=== PATIENT | female | born 2000 | race Caucasian/White ===

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

== ENCOUNTER 2020-02-22 19:40 | Emergency (ER) | payer OTHER ==
[~2020-02-22] VITALS: Ht 167.6 cm; Wt 101.6 kg
[2020-02-22 20:40] VITALS: BP 129/90
[2020-02-22 23:03] LABS: HEMOGLOBIN 14.3 g/dL (12.0-16.0); MEAN CORPUSCULAR VOLUME 88.3 fL (80-94)
[2020-02-22 23:07] LABS: BASOPHILS # (AUTO) 0.1 K/uL (0.00-0.22); BASOPHILS % (AUTO) 1.2 % (0.0-2.0); EOSINOPHILS # (AUTO) 0.1 K/uL (0-0.4); EOSINOPHILS % (AUTO) 0.8 % (0.0-4.0); LYMPHOCYTES # (AUTO) 3.4 K/uL (2.5-16.5); LYMPHOCYTES % (AUTO) 35.5 % (20.5-51.1); MEAN CORPUSCULAR HEMOGLOBIN 30 pg (27-31); MEAN CORPUSCULAR HGB CONC 34 g/dL (33-37); MONOCYTES # (AUTO) 0.8 K/uL (0.8-1.0); MONOCYTES % (AUTO) 8.5 % (1.7-9.3); NEUTROPHILS # (AUTO) 5.2 K/uL (1.8-7.7); PLATELET COUNT (AUTO) 260 K/uL (140-450); RED BLOOD CELL COUNT(AUTO) 4.75 MIL/uL (4.20-5.40); RED CELL DISTRIBUTION WIDTH 13.2 % (11.6-13.7); WHITE BLOOD COUNT (AUTO) 9.6 K/uL (4.5-11.0)
[2020-02-22 23:17] LABS: ALBUMIN 4.2 g/dL (3.4-5.0); ANION GAP 13.8 (8-16); CARBON DIOXIDE 25.9 mmol/L (21-32); CREATININE 0.7 mg/dL (0.6-1.3); POTASSIUM 3.7 mmol/L (3.5-5.1); TOTAL BILIRUBIN 0.5 mg/dL (0.0-1.0)
[2020-02-22 23:55] VITALS: BP 129/90
== END 2020-02-22 23:55 | disposition home or self-care (01) ==
LOC: MED 19:40
DX: K80.20 Calculus of gallbladder without cholecystitis without obstruction (principal)
CPT/HCPCS: 36415; 76705; 80053; 81025; 83690; 85025; 99284

== ENCOUNTER 2021-02-06 20:59 | Emergency (ER) | payer MEDICAID, OTHER ==
[~2021-02-06] VITALS: Ht 165.1 cm; Wt 108.4 kg
[2021-02-06 21:23] VITALS: BP 152/86
[2021-02-06 23:00] VITALS: BP 152/86
--- NOTE | 2021-02-06 23:00 | NUR ---
Patient discharged with v/s stable. Written and verbal after care instructions given and explained. Patient alert, oriented and verbalized understanding of instructions. [g ED.DCMODE] with [g ED.D/CMODE]. All questions addressed prior to discharge. ID band removed. Patient advised to follow up with PMD. Rx of HYDROCODON/ACETAMINOPHEN AND IBUPROFEN given. Patient educated on indication of medication including possible reaction and side effects. Opportunity to ask questions provided and answered.
--- NOTE | 2021-02-06 23:01 | NUR ---
Dr. Mae examining patient.
[2021-02-06] MEDS ORDERED: ACET-8386 PO (23:08)
[2021-02-06] MEDS ORDERED: IBUP-2213 PO (23:08)
== END 2021-02-06 23:20 | disposition home or self-care (01) ==
LOC: MED 20:59
DX: M25.531 Pain in right wrist (principal); Z79.1 Long term (current) use of non-steroidal anti-inflammatories (NSAID); Z79.891 Long term (current) use of opiate analgesic
CPT/HCPCS: 73110; 99283

== ENCOUNTER 2021-02-21 18:44 | Emergency (ER) | payer MEDICAID ==
[~2021-02-21] VITALS: Ht 167.6 cm; Wt 106.2 kg
[~2021-02-21 18:44] MED LIST: ACET-8386 PO; IBUP-2213 PO
[2021-02-21 18:49] VITALS: BP 140/106
--- NOTE | 2021-02-21 18:54 | NUR ---
PT AMB TO BED 7.
--- NOTE | 2021-02-21 19:05 | NUR ---
20/F BIB SELF WITH C/O LOWER ABDOMINAL PAIN, N/V/D X2 DAYS. PATIENT STATES PAIN HAS BEEN WORSENING AND IS UNPROVOKED, STATING SHE HAS BEEN HAVING DIFFICULTY EATING AND DRINKING DUE TO PAIN. PATIENT REPORTS TAKING PEPTO TODAY WITH NO RELIEF, DENIES CP, SOB, FEVER, CHILLS, OR URINARY SYMPTOMS, STATES PAIN IS NONRADIATING, ABDOMEN IS NONTENDER TO TOUCH.
[2021-02-21] MEDS ORDERED: KETOROLAC 30 MG/ML VIAL IM ONE (19:35)
[2021-02-21] MEDS ORDERED: ONDANSETRON 4 MG ODT PO ONE (19:35)
--- NOTE | 2021-02-21 19:50 | NUR ---
ASSUMED CARE AT THIS TIME
--- NOTE | 2021-02-21 19:50 | NUR ---
Pt report given to KELLEY HAHN. Transfer of care at this time.
[2021-02-21] MEDS ORDERED: IBUP-2213 PO (19:53)
[2021-02-21] MEDS ORDERED: CEPH-588 PO (19:53)
[2021-02-21] MEDS ORDERED: ONDA4TAB PO (19:53)
[2021-02-21] MEDS ORDERED: IMO2 PO (19:57)
--- NOTE | 2021-02-21 20:10 | NUR ---
MEDICATED ORDERED FOR PAIN
[2021-02-21 20:37] VITALS: BP 140/106
--- NOTE | 2021-02-21 20:37 | NUR ---
Patient discharged with v/s stable. Written and verbal after care instructions given and explained. Patient alert, oriented and verbalized understanding of instructions. Ambulatory with steady gait. All questions addressed prior to discharge. ID band removed. Patient advised to follow up with PMD. Rx of KEFLEX, LOPERAMIDE, ZOFRAN given. Patient educated on indication of medication including possible reaction and side effects. Opportunity to ask questions provided and answered.
== END 2021-02-21 20:37 | disposition home or self-care (01) ==
LOC: MED 18:44
DX: N39.0 Urinary tract infection, site not specified (principal); I10 Essential (primary) hypertension; R19.7 Diarrhea, unspecified; Z79.899 Other long term (current) drug therapy
CPT/HCPCS: 81002; 81025; 87086; 96372; 99283; J1885; Q0162

== ENCOUNTER 2021-11-06 21:41 | Emergency (ER) | payer MEDICAID ==
[~2021-11-06] VITALS: Ht 165.1 cm; Wt 101.6 kg
[~2021-11-06 21:41] MED LIST changes: +CEPH-588 PO; +IMO2 PO; +ONDA4TAB PO
[2021-11-06 22:11] VITALS: BP 154/88
--- NOTE | 2021-11-06 23:33 | NUR ---
ATTEMPTED TO CALL PT TO A ROOM. UNABLE TO LOCATE PT AT THIS TIME.
--- NOTE | 2021-11-06 23:49 | NUR ---
2ND ATTEMPT TO CALL PT TO A ROOM. UNABLE TO LOCATE PT AT THIS TIME.
--- NOTE | 2021-11-07 00:17 | NUR ---
3RD ATTEMPT TO CALL PT TO A ROOM. UNABLE TO LOCATE PT AT THIS TIME. PATIENT LEFT WITHOUT BEING SEEN BY DR. CRUZ. NO FURTHER CARE PROVIDED FOR PATIENT.
[2021-11-07] MEDS ORDERED: KETOROLAC 30 MG/ML VIAL IM ONE (01:10)
[2021-11-07] MEDS ORDERED: LIDOCAINE/EPI 1% 1:100000 20 ML VIAL INJ ONE (01:10)
[2021-11-07] MEDS ORDERED: ACET-8386 PO (01:38)
[2021-11-07] MEDS ORDERED: SULF-59 PO (01:38)
--- NOTE | 2021-11-07 02:52 | NUR ---
Patient discharged with v/s stable. Written and verbal after care instructions given and explained. Patient verbalized understanding. Ambulatory with steady gait. All questions addressed prior to discharge. Advised to follow up with PMD.
--- NOTE | 2021-11-07 06:55 | NUR ---
COVID/TEODOOR SWAB COLLECTED AND WALKED TO LAB
== END 2021-11-07 02:52 | disposition home or self-care (01) ==
LOC: MED 21:41
DX: L05.01 Pilonidal cyst with abscess (principal)
CPT/HCPCS: 10080; 76942; 96372; 99284; J1885; J2001

== ENCOUNTER 2021-11-09 12:26 | Emergency (ER) | payer MEDICAID ==
[~2021-11-09] VITALS: Ht 165.1 cm; Wt 103.0 kg
[~2021-11-09 12:26] MED LIST changes: +SULF-59 PO
[2021-11-09 12:31] VITALS: BP 153/91
--- NOTE | 2021-11-09 13:30 | NUR ---
SEEN&TREATED BY PADMINI FARRIS.
[2021-11-09 13:35] VITALS: BP 153/91
== END 2021-11-09 13:35 | disposition home or self-care (01) ==
LOC: MED 12:26
DX: L05.91 Pilonidal cyst without abscess (principal); Z48.00 Encounter for change or removal of nonsurgical wound dressing
CPT/HCPCS: 99281

== ENCOUNTER 2022-10-31 19:59 | Emergency (ER) | payer MEDICAID ==
[~2022-10-31] VITALS: Ht 167.6 cm; Wt 90.7 kg
[~2022-10-31 19:59] MED LIST changes: -ACET-8386 PO; +ACET-8905 PO
[2022-10-31 20:02] VITALS: BP 142/88; PULSE 88; RESP 16; TEMP 97.4; O2SAT 99
[2022-10-31] MEDS ORDERED: OMEP20EC11 PO (20:32)
[2022-10-31] MEDS ORDERED: ACET-10509 PO (20:32)
[2022-10-31 20:44] VITALS: BP 142/88; PULSE 88; RESP 16; TEMP 97.4; O2SAT 99
== END 2022-10-31 20:44 | disposition home or self-care (01) ==
LOC: MED 19:59
DX: J02.9 Acute pharyngitis, unspecified (principal); J35.8 Other chronic diseases of tonsils and adenoids; Z79.899 Other long term (current) drug therapy
CPT/HCPCS: 99282

== ENCOUNTER 2023-03-04 20:16 | Emergency (ER) | payer MEDICAID ==
[~2023-03-04] VITALS: Ht 165.1 cm; Wt 111.6 kg
[2023-03-04] MEDS: ONDANSETRON 4 MG/2 ML VIAL IVP ONE (00:15)
[~2023-03-04 20:16] MED LIST changes: +ACET-10509 PO; +OMEP20EC11 PO
[2023-03-04 20:30] VITALS: BP 153/108; PULSE 82; RESP 20; TEMP 97.7; O2SAT 99
[2023-03-04 23:54] LABS: BASOPHILS # (AUTO) 0.1 K/uL (0.00-0.22); BASOPHILS % (AUTO) 1.1 % (0.0-2.0); EOSINOPHILS # (AUTO) 0.3 K/uL (0-0.4); EOSINOPHILS % (AUTO) 2.6 % (0.0-4.0); HEMATOCRIT 42.2 % (36-48); HEMOGLOBIN 14.4 g/dL (12.0-16.0); LYMPHOCYTES # (AUTO) 5.8 K/uL (2.5-16.5); LYMPHOCYTES % (AUTO) 45.6 % (20.5-51.1); MEAN CORPUSCULAR HEMOGLOBIN 30 pg (27-31); MEAN CORPUSCULAR HGB CONC 34 g/dL (33-37); MEAN CORPUSCULAR VOLUME 86.6 fL (80-94); MONOCYTES # (AUTO) 1.1 K/uL (0.8-1.0); MONOCYTES % (AUTO) 8.3 % (1.7-9.3); NEUTROPHILS # (AUTO) 5.4 K/uL (1.8-7.7); NEUTROPHILS % (AUTO) 42.4 % (42.2-75.2); PLATELET COUNT (AUTO) 290 K/uL (140-450); RED BLOOD CELL COUNT(AUTO) 4.87 MIL/uL (4.20-5.40); RED CELL DISTRIBUTION WIDTH 13.6 % (11.6-13.7); WHITE BLOOD COUNT (AUTO) 12.8 K/uL (4.8-10.8)
[2023-03-04 23:59] LABS: ANION GAP 12.3 (8-16); CALCIUM 8.6 mg/dL (8.5-10.1); CARBON DIOXIDE 29.2 mmol/L (21-32); CREATININE 0.7 mg/dL (0.6-1.3); POTASSIUM 3.5 mmol/L (3.5-5.1)
[2023-03-05] MEDS: NACL 0.9% 1,000 ML IV ONE (00:01)
[2023-03-05 00:05] LABS: ALBUMIN 3.7 g/dL (3.4-5.0); BILIRUBIN,DIRECT 0.1 mg/dL (0.0-0.3); TOTAL BILIRUBIN 0.7 mg/dL (0.0-1.0); TOTAL PROTEIN, SERUM 8.1 g/dL (6.4-8.2)
[2023-03-05] MEDS: MORPHINE SULFATE 4 MG/ML SYR IVP ONE (00:15)
[2023-03-05 00:34] LABS: APPEARANCE,URINE CLEAR (CLEAR); BILIRUBIN,URINE NEGATIVE (NEGATIVE); BLOOD, URINE TRACE-I (NEGATIVE); COLOR,URINE YELLOW (YELLOW); LEUKOCYTE ESTERASE ,URINE TRACE (NEGATIVE); NITRITE, URINE NEGATIVE (NEGATIVE); PROTEIN,URINE NEGATIVE (NEGATIVE); UGLUCOSE NEGATIVE (NEGATIVE); UROBILINOGEN,URINE 0.2 EU/dL (0.2 - 1)
[2023-03-05 00:39] LABS: BACTERIA,URINE >30 (MANY) /HPF (None Seen); MUCUS,URINE 1+ /LPF (None Seen); SQUAMOUS EPITHELIAL CELL,UR 0-3 (FEW) /LPF (0-3 (FEW))
[2023-03-05 00:48] VITALS: O2SAT 99
[2023-03-05] MEDS: KETOROLAC 30 MG/ML VIAL IVP ONE (00:54)
[2023-03-05 01:12] VITALS: BP 159/99; PULSE 77; RESP 19; O2SAT 99
[2023-03-05] MEDS ORDERED: NITR100C7 PO (02:17)
[2023-03-05] MEDS ORDERED: ACET-8905 PO (02:17)
[2023-03-05] MEDS ORDERED: NAPR-54 PO (02:17)
[2023-03-05] MEDS: HYDROcodone/APAP 5/325 MG 1 TAB TAB PO ONE (02:34)
== END 2023-03-05 02:34 | disposition home or self-care (01) ==
LOC: MED 20:16
DX: N39.0 Urinary tract infection, site not specified (principal); K63.89 Other specified diseases of intestine; Z79.899 Other long term (current) drug therapy; Z79.2 Long term (current) use of antibiotics; Z79.1 Long term (current) use of non-steroidal anti-inflammatories (NSAID)
CPT/HCPCS: 36415; 74176; 80048; 80076; 81001; 81025; 83690; 85025; 87086; 96361; 96374; 96375; 99285; J1885; J2270; J2405; J7030; 81002

== ENCOUNTER 2023-04-18 22:16 | Emergency (ER) | payer MEDICAID ==
[~2023-04-18] VITALS: Ht 165.1 cm; Wt 113.4 kg
[~2023-04-18 22:16] MED LIST changes: +NAPR-54 PO; +NITR100C7 PO
[2023-04-18 22:35] VITALS: BP 149/98; PULSE 79; RESP 19; TEMP 97.9; O2SAT 99
[2023-04-18] MEDS ORDERED: ONDANSETRON 4 MG ODT PO ONE (23:45)
[2023-04-19 01:25] LABS: APPEARANCE,URINE CLEAR (CLEAR); BILIRUBIN,URINE NEGATIVE (NEGATIVE); BLOOD, URINE NEGATIVE (NEGATIVE); COLOR,URINE YELLOW (YELLOW); LEUKOCYTE ESTERASE ,URINE NEGATIVE (NEGATIVE); NITRITE, URINE NEGATIVE (NEGATIVE); PROTEIN,URINE NEGATIVE (NEGATIVE); UGLUCOSE NEGATIVE (NEGATIVE); UROBILINOGEN,URINE 0.2 EU/dL (0.2 - 1)
[2023-04-19 01:30] LABS: BASOPHILS # (AUTO) 0.1 K/uL (0.00-0.22); BASOPHILS % (AUTO) 1.2 % (0.0-2.0); EOSINOPHILS # (AUTO) 0.3 K/uL (0-0.4); EOSINOPHILS % (AUTO) 2.7 % (0.0-4.0); HEMATOCRIT 41.2 % (36-48); HEMOGLOBIN 13.8 g/dL (12.0-16.0); LYMPHOCYTES # (AUTO) 4.9 K/uL (2.5-16.5); LYMPHOCYTES % (AUTO) 43.7 % (20.5-51.1); MEAN CORPUSCULAR HEMOGLOBIN 29 pg (27-31); MEAN CORPUSCULAR HGB CONC 34 g/dL (33-37); MEAN CORPUSCULAR VOLUME 86.8 fL (80-94); MONOCYTES % (AUTO) 8.6 % (1.7-9.3); NEUTROPHILS # (AUTO) 4.9 K/uL (1.8-7.7); NEUTROPHILS % (AUTO) 43.8 % (42.2-75.2); PLATELET COUNT (AUTO) 274 K/uL (140-450); RED BLOOD CELL COUNT(AUTO) 4.74 MIL/uL (4.20-5.40); RED CELL DISTRIBUTION WIDTH 13.7 % (11.6-13.7); WHITE BLOOD COUNT (AUTO) 11.2 K/uL (4.8-10.8)
[2023-04-19 01:44] LABS: ANION GAP 13.2 (8-16); CARBON DIOXIDE 26.3 mmol/L (21-32); POTASSIUM 3.5 mmol/L (3.5-5.1)
[2023-04-19 01:56] LABS: CALCIUM 9.1 mg/dL (8.5-10.1); CREATININE 0.7 mg/dL (0.6-1.3)
[2023-04-19] MEDS ORDERED: ONDA-188 SL (02:49)
[2023-04-19] MEDS ORDERED: CIPR500T4 PO (02:49)
[2023-04-19 04:04] VITALS: BP 149/98; PULSE 79; RESP 19; TEMP 97.9; O2SAT 99
== END 2023-04-19 04:05 | disposition home or self-care (01) ==
LOC: MED 22:16
DX: R11.10 Vomiting, unspecified (principal); R19.7 Diarrhea, unspecified; R10.33 Periumbilical pain; Z79.899 Other long term (current) drug therapy
CPT/HCPCS: 36415; 80048; 81003; 81025; 83690; 84702; 85025; 99283; Q0162

== ENCOUNTER 2023-05-15 19:35 | Emergency (ER) | payer MEDICAID ==
[~2023-05-15] VITALS: Ht 165.1 cm; Wt 116.1 kg
[~2023-05-15 19:35] MED LIST changes: +CIPR500T4 PO; +ONDA-188 SL
[2023-05-15 19:44] VITALS: PULSE 91; RESP 16; TEMP 98.1; O2SAT 98
[2023-05-15 20:00] VITALS: O2SAT 98
[2023-05-15 20:18] LABS: BASOPHILS # (AUTO) 0.1 K/uL (0.00-0.22); BASOPHILS % (AUTO) 0.8 % (0.0-2.0); EOSINOPHILS # (AUTO) 0.2 K/uL (0-0.4); EOSINOPHILS % (AUTO) 1.4 % (0.0-4.0); HEMATOCRIT 39.3 % (36-48); HEMOGLOBIN 13.6 g/dL (12.0-16.0); LYMPHOCYTES # (AUTO) 4.4 K/uL (2.5-16.5); MEAN CORPUSCULAR HEMOGLOBIN 30 pg (27-31); MEAN CORPUSCULAR HGB CONC 35 g/dL (33-37); MONOCYTES # (AUTO) 1.2 K/uL (0.8-1.0); MONOCYTES % (AUTO) 8.8 % (1.7-9.3); NEUTROPHILS # (AUTO) 7.8 K/uL (1.8-7.7); PLATELET COUNT (AUTO) 281 K/uL (140-450); RED BLOOD CELL COUNT(AUTO) 4.52 MIL/uL (4.20-5.40); RED CELL DISTRIBUTION WIDTH 13.9 % (11.6-13.7); WHITE BLOOD COUNT (AUTO) 13.6 K/uL (4.8-10.8)
[2023-05-15 20:33] LABS: ALBUMIN 3.4 g/dL (3.4-5.0); BILIRUBIN,DIRECT 0.1 mg/dL (0.0-0.3); TOTAL BILIRUBIN 0.6 mg/dL (0.0-1.0); TOTAL PROTEIN, SERUM 8.1 g/dL (6.4-8.2)
[2023-05-15 20:42] LABS: ANION GAP 14.2 (8-16); CALCIUM 8.2 mg/dL (8.5-10.1); CARBON DIOXIDE 24.3 mmol/L (21-32); CREATININE 0.7 mg/dL (0.6-1.3); POTASSIUM 3.5 mmol/L (3.5-5.1)
== END 2023-05-15 21:53 | disposition home or self-care (01) ==
LOC: MED 19:35
DX: O26.891 Other specified pregnancy related conditions, first trimester (principal); R10.30 Lower abdominal pain, unspecified; Z3A.14 14 weeks gestation of pregnancy; Z79.899 Other long term (current) drug therapy
CPT/HCPCS: 36415; 76817; 80048; 80076; 81002; 81025; 83690; 84702; 85025; 86900; 86901; 99284

== ENCOUNTER 2023-07-09 17:56 | Emergency (ER) | payer MEDICAID ==
[~2023-07-09] VITALS: Ht 165.1 cm; Wt 112.9 kg
[~2023-07-09 17:56] MED LIST changes: +NAPR-337 PO; -NAPR-54 PO
[2023-07-09 18:12] VITALS: BP 133/102; PULSE 76; RESP 18; TEMP 97; O2SAT 99
[2023-07-09 19:17] LABS: BASOPHILS # (AUTO) 0.1 K/uL (0.00-0.22); BASOPHILS % (AUTO) 0.6 % (0.0-2.0); EOSINOPHILS # (AUTO) 0.1 K/uL (0-0.4); EOSINOPHILS % (AUTO) 0.6 % (0.0-4.0); LYMPHOCYTES # (AUTO) 3.6 K/uL (2.5-16.5); LYMPHOCYTES % (AUTO) 30.4 % (20.5-51.1); MEAN CORPUSCULAR HEMOGLOBIN 30 pg (27-31); MEAN CORPUSCULAR HGB CONC 34 g/dL (33-37); MEAN CORPUSCULAR VOLUME 88.1 fL (80-94); MONOCYTES # (AUTO) 0.8 K/uL (0.8-1.0); NEUTROPHILS # (AUTO) 7.3 K/uL (1.8-7.7); NEUTROPHILS % (AUTO) 61.4 % (42.2-75.2); PLATELET COUNT (AUTO) 262 K/uL (140-450); RED BLOOD CELL COUNT(AUTO) 4.66 MIL/uL (4.20-5.40); RED CELL DISTRIBUTION WIDTH 13.8 % (11.6-13.7); WHITE BLOOD COUNT (AUTO) 11.8 K/uL (4.8-10.8)
[2023-07-09 20:27] LABS: APPEARANCE,URINE CLEAR (CLEAR); BILIRUBIN,URINE NEGATIVE (NEGATIVE); BLOOD, URINE NEGATIVE (NEGATIVE); COLOR,URINE YELLOW (YELLOW); LEUKOCYTE ESTERASE ,URINE NEGATIVE (NEGATIVE); NITRITE, URINE NEGATIVE (NEGATIVE); PROTEIN,URINE TRACE (NEGATIVE); UGLUCOSE NEGATIVE (NEGATIVE); UROBILINOGEN,URINE 0.2 EU/dL (0.2 - 1)
== END 2023-07-09 20:46 | disposition home or self-care (01) ==
LOC: MED 17:56
DX: O20.0 Threatened abortion (principal); Z3A.12 12 weeks gestation of pregnancy; Z79.899 Other long term (current) drug therapy
CPT/HCPCS: 36415; 76801; 81003; 81025; 84702; 85025; 99284